=== PATIENT | male | born 1990 | race Hispanic/Latino ===

== ENCOUNTER 2019-07-27 22:38 | Emergency (ER) | payer BC, MEDICAID, OTHER ==
[2019-07-27] MEDS ORDERED: LIDOCAINE HCL 2% JELLY 5 ML ONE (23:03)
== END 2019-07-27 23:22 | disposition home or self-care (01) ==
LOC: EDH 22:38
DX: K64.8 Other hemorrhoids (principal)

== ENCOUNTER 2023-03-03 20:17 | Emergency (ER) | payer OTHER ==
[~2023-03-03] VITALS: Ht 177.8 cm; Wt 84.4 kg
[2023-03-03 22:12] VITALS: BP 113/77
[2023-03-03] MEDS ORDERED: KETOROLAC 30MG VIAL (30MG/ML) IM ONE (23:30)
[2023-03-03] MEDS ORDERED: IBUP-2070 PO (23:54)
== END 2023-03-04 00:06 | disposition home or self-care (01) ==
LOC: EDH 20:17
DX: S00.83XA Contusion of other part of head, initial encounter (principal); S24.159A Other incomplete lesion at unspecified level of thoracic spinal cord, initial encounter; X58.XXXA Exposure to other specified factors, initial encounter; Y93.89 Activity, other specified; Y92.89 Other specified places as the place of occurrence of the external cause; Y99.8 Other external cause status
CPT/HCPCS: 99285; 70450; 72070; 72125; 96372; J1885